=== PATIENT | male | born 1965 | race Caucasian/White ===

== ENCOUNTER 2017-01-01 11:39 | Emergency (ER) | payer OTHER ==
[~2017-01-01] VITALS: Ht 167.6 cm; Wt 57.6 kg
[2017-01-01 12:29] LABS: HEMATOCRIT 48.6 % (42.0-52.0); HEMOGLOBIN 16.6 gm/dL (14.0-18.0); MCH 32.2 pg (26.0-34.0); MCHC 34.2 g/dL (28.0-37.0); MCV 94.1 fL (80.0-100.0); PLATELET COUNT 154 thou/uL (150-400); RBC 5.17 mil/uL (4.50-6.00); RDW 13.1 % (10.5-14.5); WBC 4.8 thou/uL (4.0-11.0)
[2017-01-01 12:30] LABS: MANUAL DIFF YES
[2017-01-01 12:34] LABS: CALCIUM 8.9 mg/dL (8.5-10.1); CREATININE 1.5 mg/dL (0.7-1.3); POTASSIUM 4.3 mmol/L (3.5-5.1)
[2017-01-01] MEDS ORDERED: VITAMINC500 PO (12:38)
[2017-01-01] MEDS ORDERED: UNICOMPLEX M TA1 TA1 PO (12:38)
[2017-01-01 12:39] LABS: ALBUMIN 3.7 g/dL (3.4-5.0); DIRECT BILIRUBIN 0.2 mg/dL (<0.1-0.3); TOTAL BILIRUBIN 0.9 mg/dL (<0.1-1.0); TOTAL PROTEIN 7.6 g/dL (6.4-8.2)
[2017-01-01] MEDS ORDERED: SYNTHROID75 MCG PO (12:41)
[2017-01-01] MEDS ORDERED: BUSPIRONE HCL10 MG PO (12:42)
[2017-01-01] MEDS ORDERED: TYLENOL EXTRA500 MG PO (12:42)
[2017-01-01] MEDS ORDERED: ANTACID168 MG PO (12:43)
[2017-01-01] MEDS ORDERED: MILK OF MA2400 MG/10 PO (12:43)
[2017-01-01] MEDS ORDERED: IBUPROFEN 400400 M2 PO (12:44)
[2017-01-01 13:05] LABS: ABSOLUTE NEUTROPHILS 4.1 thou/uL (1.4-8.2); ANISOCYTOSIS SLIGHT; ATYPICAL LYMPHS 2 %; TOTAL CELL COUNT 100
[2017-01-01 13:49] LABS: URINE BILIRUBIN NEGATIVE (Negative); URINE BLOOD NEGATIVE (Negative); URINE COLOR YELLOW; URINE GLUCOSE-RANDOM* NEGATIVE (Negative); URINE KETONES NEGATIVE (Negative); URINE NITRITE NEGATIVE (Negative); URINE PROTEIN (DIPSTICK) NEGATIVE (Negative); URINE SPECIFIC GRAVITY <= 1.005 (1.003-1.035); URINE UROBILINOGEN 0.2 E.U./dl (0.2-1.0)
[2017-01-01] MEDS ORDERED: PHENERGAN 25 MG25 M1 PO (14:05)
[2017-01-01] MEDS ORDERED: ZOFRAN ODT4 MG PO (14:05)
[2017-01-01] MEDS ORDERED: NORCO 5-325 TA1 EACH PO (14:05)
[2017-01-01 14:39] VITALS: BP 108/48
== END 2017-01-01 14:40 | disposition home or self-care (01) ==
LOC: ER 11:39
PROVIDERS: Emergency Medicine
DX: K52.9 Noninfective gastroenteritis and colitis, unspecified (principal); R10.9 Unspecified abdominal pain; N28.9 Disorder of kidney and ureter, unspecified; Q90.9 Down syndrome, unspecified